=== PATIENT | female | born 1945 | race Asian ===

== ENCOUNTER 2018-01-31 16:35 | Emergency (ER) | payer MEDICARE ==
--- NOTE | 2018-01-31 16:45 | Emergency Department Record ---
History of Present Illness - General Chief Complaint: Knee injury Stated Complaint: L KNEE INJURY Time Seen by Provider: 01/31/18 16:45 Source: Patient Mode of Arrival: Ambulatory Limitations: No limitations - History of Present Illness Initial Comments: The patient is here due to knee pain that has been getting progressively worse for the last 2 months. [place] and was doing a lot of walking. It seems that walking up stairs makes the pain much worse. There was no known injury or direct trauma. The patient [place] the airport [place] the pain much worse. There is no calf or thigh pain or swelling. MD Complaint: Knee injury Onset/Timin -: Month(s) Type of Injury: Unknown Place: Home Severity: Moderate - Related Data Allergies Allergy/AdvReac Type Severity Reaction Status Date / Time levofloxacin [From Levaquin] Allergy RASH Verified 01/31/18 16:40 Review of Systems Constitutional: Denies: Chills, Fever Eyes: Denies: Eye discharge ENT: Denies: Congestion Respiratory: Denies: Cough, Dyspnea Past Medical History - SOCIAL HISTORY Smoking Status: Never smoker - RESPIRATORY Hx Respiratory Disorders: Yes Hx Asthma: Yes Hx COPD: Yes - CARDIOVASCULAR Hx Cardio Disorders: Yes Hx CHF: Yes Hx Hypertension: Yes - NEURO Hx Neuro Disorders: No - GI Hx GI Disorders: Yes Hx Reflux: Yes - Hx Genitourinary Disorders: No - ENDOCRINE Hx Endocrine Disorders: Yes Hx Thyroid Disease: Yes - MUSCULOSKELETAL Hx Musculoskeletal Disorders: Yes Hx Back Injury: Yes - PSYCH Hx Psych Problems: No - HEMATOLOGY/ONCOLOGY Hx Hematology/Oncology Disorders: No Family Medical History Hx Diabetes: Brother/Sister Hx Heart Disease: Mother Hx Resp Disorders: Mother Physical Exam - General General Appearance: Alert, Oriented x3, Cooperative, No acute distress - Head Head exam: Atraumatic, Normocephalic, Normal inspection - Eye Eye exam: Normal appearance, PERRL - Neck Neck exam: Normal inspection, Full ROM. negative: Tenderness - Respiratory Respiratory exam: Normal lung sounds bilaterally. negative: Respiratory distress - Cardiovascular Cardiovascular Exam: Regular rate, Normal rhythm, Normal heart sounds - Extremities Extremities exam: Normal inspection (There is no swelling, erythema, or effusions appreciated.), Normal capillary refill. negative: Full ROM (There is decreased full flexion due to pain. There is no ligamentous laxity.), Tenderness (There is no joint line tenderness or warmth.) - Neurological Neurological exam: Alert. negative: Motor sensory deficit Course - Reevaluation(s) Reevaluation #1: I did discuss the xray results with the patient and . She does have an appointment with Dr. Aguayo for next Sunday. She is to use ice to the L knee and use her home crutches if needed. 01/31/18 17:33 Medical Decision Making - Data Complexity MDM Data: X-Ray Ordered and/or Reviewed - Radiology Data Radiology results: Report reviewed (L knee: Neg for fx or dislocation. Mild to mod arthritis.) Disposition Disposition: Discharge Clinical Impression: Knee pain, chronic Qualifiers: Laterality: left Qualified Code(s): M25.562 - Pain in left knee Disposition: Home, Self-Care Condition: (2) Stable Instructions: Knee Pain (ED) Additional Instructions: The patient is to ice and elevate the L knee when possible and to use Tylenol for pain. She is to use her home crutches or obtain a cane if needed for walking. She is instructed to keep her appointment with Dr. Aguayo for Sunday. Forms: Patient Portal Access Time of Disposition: 17:35 Quality - Quality Measures Quality Measures: N/A - Blood Pressure Screening View Details: Yes Does Patient Have Any of the Following: No Blood Pressure Classification: Pre-Hypertensive BP Reading Systolic Measurement: 134 Diastolic Measurement: 63 Screening for High Blood Pressure: < Pre-Hypertensive BP, F/U Documented > [ G8950] Pre-Hypertensive Follow-up Interventions: Referral to alternative/primary care provider.
[2018-01-31] MEDS: ACETAMINOPHEN 325 MG TAB PO ONE (17:15)
--- NOTE | 2018-02-03 16:35 | RADIOLOGY REPORT ---
DATE: 01/31/2018 at 1659 hours. EXAM: LEFT KNEE, THREE VIEWS. HISTORY: Left knee pain for a few weeks. Pain is worse with climbing stairs and walking. Prior arthroscopy. TECHNIQUE: Three views of the left knee. COMPARISON: None. ENCOUNTER: Initial. FINDINGS: There is normal bone mineralization. No acute fracture, dislocation , or destructive bone lesion is seen. Tricompartmental osteoarthritic changes are identified, most pronounced in the medial and patellofemoral compartments where they are mild to moderate in degree. No joint effusion. No focal soft tissue abnormality. IMPRESSION: 1. NO EVIDENCE OF ACUTE BONE NOR JOINT ABNORMALITY. 2. TRICOMPARTMENTAL OSTEOARTHRITIC CHANGES MOST PRONOUNCED IN THE MEDIAL AND PATELLOFEMORAL COMPARTMENTS. JOB NUMBER: [id number] MTDD
== END 2018-01-31 17:49 | disposition home or self-care (01) ==
LOC: ER 16:35
DX: G89.29 Other chronic pain (principal); M25.562 Pain in left knee; I10 Essential (primary) hypertension; I50.9 Heart failure, unspecified
CPT/HCPCS: 99283

== ENCOUNTER 2018-05-07 07:26 | Day surgery (SDC) | payer MEDICARE ==
[2018-04-29 15:03] LABS: BLOOD UREA NITROGEN 17 mg/dL (8-23); CREATININE 0.7 mg/dL (0.5-0.9); EST GLOMERULAR FILTRATION RATE > 60 mL/min; GLUCOSE,RANDOM 151 mg/dL (74-109)
[2018-04-29 15:37] LABS: BASO % 0.4 % (0-6); EOS % 1.7 % (0-6); GRAN % 57.2 % (47-80); HEMATOCRIT 45.4 % (35.0-47.0); HEMOGLOBIN 15.2 gm/dl (11.6-16.0); LYMPH % 34.6 % (16-45); MEAN CELL VOLUME 86.3 fl (81-97); MEAN CORPUSCULAR HEMOGLOBIN 28.9 pg (27-33); MEAN CORPUSCULAR HGB CONC 33.5 g/dl (32-36); MEAN PLATELET VOLUME 9.8 fl (7.4-10.4); MONO % 6.1 % (0-9); PLATELET COUNT 302 K/uL (130-400); RED BLOOD COUNT 5.26 M/uL (3.80-5.40); RED CELL DISTRIBUTION WIDTH 13.3 % (11.5-14.5); WHITE BLOOD COUNT W/O DIFF 9.6 K/uL (4.2-12.2)
[~2018-05-07 07:26] MED LIST: CELECOXIB 100 MG CAPSULE PO ONE; CLINDAMYCIN 600MG/50ML PREMIX 600 MG/50 ML BAG IVPB ONE; FAMOTIDINE 20MG TABLET PO ONE; MECLIZINE 25 MG TABLET PO ONE; METOCLOPRAMIDE 10 MG TABLET PO ONE
[2018-05-07] MEDS ORDERED: MIDAZOLAM HCL 2MG/2ML VIAL IV ONE (07:27)
[2018-05-07] MEDS ORDERED: DEXAMETHASONE 4 MG/ML 1ML VIAL IVP ONE (07:27)
[2018-05-07] MEDS ORDERED: FENTANYL PF 100MCG/2ML VIAL IV ONE (07:27)
[2018-05-07] MEDS ORDERED: BUPIVACAINE 0.25% W/EPI MPF 30ML VIAL IVP ONE (07:27)
[2018-05-07] MEDS ORDERED: LIDOCAINE 2% MDV (20MG/ML) 20ML VIAL IV ONE (07:27)
[2018-05-07] MEDS ORDERED: BUPIVACAINE LIPOSOME 266MG/20ML VIAL IV ONE (07:27)
[2018-05-07] MEDS ORDERED: PROPOFOL 10 MG/ML VIAL IV ONE (07:27)
[2018-05-07] MEDS ORDERED: ROPIVACAINE HCL (NAROPIN) /PF 5MG/ML 20ML VIAL IV ONE (07:27)
[2018-05-07] MEDS ORDERED: ACETAMINOPHEN 1,000 MG/100 ML BTL IV ONE (07:27)
[2018-05-07] MEDS ORDERED: EPHEDRINE SULFATE 50 MG/ML ML IV ONE (07:27)
[2018-05-07] MEDS ORDERED: HYDROCODONE/APAP 5/325MG TABLET PO PRN (11:07)
[2018-05-07] MEDS ORDERED: OXYCODONE HCL/APAP 5MG/325MG TABLET PO PRN ×2 (11:07)
[2018-05-07] MEDS ORDERED: ZOLPIDEM TARTRATE 5 MG TABLET PO PRN (11:15)
[2018-05-07] MEDS ORDERED: SENNOSIDES/DOCUSATE SODIUM UD CAPSULE PO PRN (11:15)
[2018-05-07] MEDS ORDERED: ONDANSETRON HCL IV 4 MG/2 ML VIAL IVP PRN (11:15)
[2018-05-07] MEDS ORDERED: METOCLOPRAMIDE HCL 10 MG/2 ML VIAL IVP PRN (11:15)
[2018-05-07] MEDS ORDERED: HYDROMORPHONE HCL 2 MG/ML VIAL IV PRN (11:15)
[2018-05-07] MEDS ORDERED: TRAMADOL HCL 50 MG TABLET PO PRN ×2 (11:15)
[2018-05-07] MEDS ORDERED: MAGNESIUM HYDROXIDE 30 ML UDC PO PRN (11:15)
[2018-05-07] MEDS ORDERED: DIPHENHYDRAMINE HCL 25 MG CAPSULE PO PRN (11:15)
[2018-05-07] MEDS ORDERED: AL HYDROX/MAG HYDROX 30ML UD PO PRN (11:15)
[2018-05-07] MEDS ORDERED: RINGERS SOLUTION,LACTATED 1,000 ML IV PRN (11:17)
[2018-05-07] MEDS ORDERED: XOPENEX INH PRN (11:21)
[2018-05-07] MEDS: RINGERS SOLUTION,LACTATED 1,000 ML IV SCH (12:00)
[2018-05-07] MEDS: CANDESARTAN 32 MG PO SCH (12:21)
[2018-05-07] MEDS ORDERED: TRANEXAMIC ACID 1,000 MG in 0.9 % SODIUM CHLORIDE 100ML 100 ML IVPB ONE (13:00)
--- NOTE | 2018-05-07 15:40 | Rehab Evaluation ---
Patient Information - Patient Information Diagnosis: L knee OA Ordered Treatment: PT Evaluate and Treat Status: Initial Evaluation Surgery: Yes (L TKA) Date of Surgery: 05/07/18 Past Medical/Surgical Hx: PAST MEDICAL/SURGICAL HISTORY Past Surgical History cataract knee PMH - Respiratory Hx Respiratory Disorders Yes Hx Asthma Yes Hx Bronchitis Yes Hx Chronic Obstructive Yes Pulmonary Disease (COPD) Hx Dyspnea Yes Hx Pneumonia Yes Hx of SOB Yes PMH - Cardiovascular Hx Cardiovascular Disorders Yes Hx Congestive Heart Failure Yes Hx Hypertension Yes Exercise Tolerance Fair Comment: due to knee pain PMH - Neuro Hx Neurological Disorders No Hx Dizziness Yes: off balance at times Hx Headaches Yes: frequently PMH - GI Hx Gastrointestinal Disorders Yes Hx Gastroesophageal Reflux Yes PMH - Hx Genitourinary Disorders No Hx Age of Menopause 45 Hx Bladder Problem Yes: some incontinence uses a pad leaking PMH - Endocrine Hx Endocrine Disorders Yes Hx Thyroid Disease Yes PMH - Musculoskeletal Hx Musculoskeletal Disorders Yes Hx Arthritis Yes: left knee and fingers Hx Back Injury Yes PMH - Psych Hx Psychiatric Problems No Hx Anxiety Yes PMH - Hematology/Oncology Hx Hematology/Oncology No Disorders Hx Radiation Therapy Yes: for graves disease Premorbid Status: Detail (The patient was independent with all mobility prior to surgery.) Social History: Detail (The patient lives with spouse in a one story house with 4 steps at the enterance and two railings. The patient's bathroom is equipped with a tub/shwoer combination ,no grab bras and a standard height toilet. The patient has a walker and standard cane and shower bench.) Precautions: [place], Fall, Other (WBAT on the L LE) - Time With Patient Total Time Spent With Patient (Min): 30 Treatment Procedures: Detail (Gait training, Initial Evaluation) Subjective Information - Subjective Information Per Patient (The patient had no complaints of pain) Objective Data - Mental Status Patient Orientation: Oriented x3 - Visual Perception Appears within normal limits for therapeutic activities - ROM Not within normal limits (The patient's L knee AROM was limited as to be expected following surgery . All other LE AROM was WNL.) - Strength/Tone Not within normal limits (The patient's L LE strength was not tested but was functional ie: pt was able to complete a SLR. R LE strength was functional.) - Bed Mobility Independent (The patient was independent with supine to and from sit transfer.) - Transfers Independent (The patient was independent with sit to and from stand transfer and toilet transfer.) - Balance Balance Sitting: Good Balance Standing: Good - Sensation Intact - Gait Detail (The patient ambulated with front wheeled walker a distance of 67 feet x1 WBAT on the L LE with supervision for safety.) Therapy Assessment - Therapy Assessment Detail (The patient was independent with bed mobility, transfers and ambulates with supervision for safety. Feel the patient will progress well with mobility.) Problem List - Problem List Physical Therapy Problem List: Detail (1) Decreased L knee AROM and strength as to be expected following surgery. 2) Non ambulatory on stairs) Goals - Goals Physical Therapy Goals: 1) The patient will be independent with TKA HEP. 2) The patient will ambulate on stairs with supervision for safety. Prognosis - Prognosis Good Plan - Plan Physical Therapy Plan: PT 1-2 sessions for gait training on stairs and instruction in HEP.
--- NOTE | 2018-05-07 16:31 | Operative Note ---
DATE OF SURGERY: 05/07/2018 Surgeon: Geovanny Aguayo DO PREOPERATIVE DIAGNOSIS: Primary osteoarthritis of the left knee. POSTOPERATIVE DIAGNOSIS: Primary osteoarthritis of the left knee. OPERATION: Left total knee arthroplasty. DESCRIPTION OF PROCEDURE: This 73-year-old female was taken to the operating room and placed in the supine position on the operating room table after spinal anesthesia had been induced. The left lower extremity was then elevated. It was prepped with Hibiclens and draped in the usual sterile fashion, exsanguinated, and the tourniquet inflated to 300 mmHg. All scrub personnel wore personal isolation suits. An anterior longitudinal midline incision was made followed by a medial parapatellar arthrotomy incision. An intracondylar drill hole was made for the intramedullary alignment roddy, and the distal femoral cutting block was set at a 9 mm cut and 5-degree valgus. The appropriate cut was made. The sizing jig was affixed, and a size 57 was seen to be the appropriate size in the medial-lateral direction but not in the anterior-posterior direction, so we had to move the pin sites 2 mm anteriorly to avoid notching the anterior aspect of the femur. Once this was performed, the 4-in-1 cutting block pinned in 3 degrees of external rotation. The appropriate cuts were made. We then directed our attention to the proximal tibia, and an extramedullary alignment guide was used to cut the proximal tibia. Once the appropriate rotational alignment had been assured, a 3-degree slope cut was made referencing 10 mm cut off the lateral tibial plateau. This was seen to be not quite enough bone to get below the subchondral bone. Therefore, an additional 2 mm was taken. We then directed our attention to removal of the osteophytes and remnants of the menisci. The tibia was then sized to a 67 and the stem punch was used. The soft tissue balance was checked in flexion/extension. Trial components were inserted and an 11 mm bearing was seen to be the appropriate size giving us the best stability throughout normal range of motion. We had cut the patella and restored it to anatomic height with a 34 x 8.6 mm trial. Once this was seen to be satisfactory, all trial components were then removed and the wound again copiously irrigated with pulse lavage, lactated Ringer's solution. Exparel was injected into the posterior, medial, and lateral corners of the joint and at the completion of the procedure, the remainder was injected into the periosteum and joint capsule of the proximal tibia and distal femur. All bony surfaces were dried and excess cement removed after the insertion of each component. Initially the tibial baseplate was cemented followed by the insertion of the tibial bearing, then the femoral component, and finally the patella. Once the cement had completely hardened, the knee was again taken through range of motion and found to be stable. Copious irrigation was again performed. The joint suctioned and the drain placed through a separate stab incision. The arthrotomy incision was closed with a #2 Vicryl and this was augmented with #1 Ethibond. The subcutaneous tissue was closed with 0 Vicryl and the skin was stapled. Sterile dressings were applied with a Polar Care. The patient was taken to the recovery room in satisfactory condition. GROSS PATHOLOGY: This patient demonstrated advanced osteoarthritis of the medial compartment and full-thickness articular cartilage loss noted on both articulating surfaces and the same was true of the patellofemoral joint with the lateral compartment showing grade 2 changes. Final components inserted were a [employer] V[employer] size 57.5 cruciate retaining femur, a size 67 tibial baseplate, an 11 mm anterior stabilized E1 bearing, and a 34 x 8.6 mm patella was used. CC: Moo SOLITARIO
[2018-05-07] MEDS: CEFAZOLIN 2 Gram 2 GM/50 ML BAG IVPB SCH (16:34)
[2018-05-07] MEDS: HYDROCODONE/APAP 5/325MG TABLET PO PRN (16:35)
[2018-05-07] MEDS: ASPIRIN 325 MG TAB ENTERIC-COATED PO SCH (21:42)
[2018-05-07] MEDS ORDERED: CANDESARTAN 32 MG PO SCH (22:00)
[2018-05-08] MEDS: CEFAZOLIN 2 Gram 2 GM/50 ML BAG IVPB SCH ×2 (00:06→08:39)
[2018-05-08] MEDS: HYDROCODONE/APAP 5/325MG TABLET PO PRN ×3 (01:20→07:32)
[2018-05-08] MEDS: RINGERS SOLUTION,LACTATED 1,000 ML IV SCH (05:03)
[2018-05-08] MEDS ORDERED: PATIENT OWN MED: LEVOTHYROXINE 100 MCG PO SCH (07:00)
--- NOTE | 2018-05-08 09:57 | Rehab Evaluation ---
Patient Information - Patient Information Diagnosis: L knee OA Ordered Treatment: OT Evaluate and Treat Status: Initial Evaluation Surgery: Yes (L TKA) Date of Surgery: 05/07/18 Past Medical/Surgical Hx: PAST MEDICAL/SURGICAL HISTORY Past Surgical History cataract knee PMH - Respiratory Hx Respiratory Disorders Yes Hx Asthma Yes Hx Bronchitis Yes Hx Chronic Obstructive Yes Pulmonary Disease (COPD) Hx Dyspnea Yes Hx Pneumonia Yes Hx of SOB Yes PMH - Cardiovascular Hx Cardiovascular Disorders Yes Hx Congestive Heart Failure Yes Hx Hypertension Yes Exercise Tolerance Fair Comment: due to knee pain PMH - Neuro Hx Neurological Disorders No Hx Dizziness Yes: off balance at times Hx Headaches Yes: frequently PMH - GI Hx Gastrointestinal Disorders Yes Hx Gastroesophageal Reflux Yes PMH - Hx Genitourinary Disorders No Hx Age of Menopause 45 Hx Bladder Problem Yes: some incontinence uses a pad leaking PMH - Endocrine Hx Endocrine Disorders Yes Hx Thyroid Disease Yes PMH - Musculoskeletal Hx Musculoskeletal Disorders Yes Hx Arthritis Yes: left knee and fingers Hx Back Injury Yes PMH - Psych Hx Psychiatric Problems No Hx Anxiety Yes PMH - Hematology/Oncology Hx Hematology/Oncology No Disorders Hx Radiation Therapy Yes: for graves disease Premorbid Status: Detail (The patient was independent with all I/ADL's and mobility prior to surgery.) Social History: Detail (The patient lives with spouse in a one story house with 4 steps at the entrance and two railings. There's a small step into the kitchen with no railing. The patient's bathroom is equipped with a tub/shower combination, hand held shower head, no grab bars and a standard height toilet. The patient has a walker and pronged cane. Pt. ordered a grab bar for the bathroom but is not installed yet. Pt. recently got a shower bench but is unsure if it is a tub bench (2 legs in, 2 legs out) or chair (all 4 legs in shower). will be available to assist if needed.) Precautions: [place], Fall, Other (WBAT on the L LE) - Time With Patient Total Time Spent With Patient (Min): 45 Treatment Procedures: Detail (OT Andrea Pineda. Session was concluded with pt. supine in bed, call light within reach and bedside tray within reach.) Subjective Information - Subjective Information Per Patient (Pt. had several questions regarding ADL's, LE positioning, etc. and educ. was provided until questions were met. Educ. was provided she may call rehab dept. if more questions arise.) Objective Data - Pain Pain Present: Yes (2/10 LLE at rest. Pt. reported nursing administered pain meds 30 minutes ago, and is helping.) - Mental Status Patient Orientation: Oriented x3 - Visual Perception Appears within normal limits for therapeutic activities - ROM Within normal limits (BUE) - Strength/Tone Within normal limits (RUE WNL 4+/5 all planes. LUE slightly weaker, but pt. stated is sore from IV. 4- to 4/5. Pt. is R hand dominant.) - Coordination Appears within normal limits for therapeutic activities - Bed Mobility Independent (Educ. provided in adaptive techniques for lifting LLE in/out of bed. Pt. was challenged supine<>sit without using trapeze or bed rail, but was able to do it independently.) - Transfers Independent (modified Ind. sit<>stand from bed to walker, and standard toilet to walker.) - Balance Balance Sitting: Good Balance Standing: Fair - Sensation Intact (BUE fingertips light touch intact) - ADL's/IADL's Detail (Did not assess dressing at this time d/t IV, knee drain, and nursing would need to re-dress the wound soon. Pt. was able to reach RLE to don and doff sock but was unable to reach LLE. Educ. was provided in use of manager [employer] and adaptive dressing techniques. Educ. was provided in using shower chair, tub bench, and t/f techniques. Pt. verbalized understanding.) Therapy Assessment - Therapy Assessment Detail (In-pt. OT services not recommended at this time. However, pt. would benefit from home OT evaluation to assess environmental/equipment needs and education in tub t/f.) Patient Education - Patient Education Teaching Topic: Equipment Use, Exercise/Activity Response: Reinforcement Needed, Verbalize Understanding Teaching Method: Discussion, Demonstration Teaching Recipient: Patient Barriers To Learning: None Problem List - Problem List Physical Therapy Problem List: Detail (1) Decreased L knee AROM and strength as to be expected following surgery. 2) Non ambulatory on stairs) Goals - Goals Physical Therapy Goals: 1) The patient will be independent with TKA HEP. 2) The patient will ambulate on stairs with supervision for safety. Prognosis - Prognosis Good Plan - Plan Physical Therapy Plan: PT 1-2 sessions for gait training on stairs and instruction in HEP. Occupational Therapy Plan: D/C from in-pt. OT.
[2018-05-08] MEDS ORDERED: PATIENT OWN MED: CHLORTHALIDONE 25 MG PO SCH (10:00)
[2018-05-08] MEDS ORDERED: CELECOXIB 100 MG CAPSULE PO SCH (10:00)
[2018-05-08] MEDS ORDERED: SPIRIVA HANDIHALER INH SCH (10:00)
[2018-05-08] MEDS ORDERED: BYSTOLIC 20 MG PO SCH (10:00)
[2018-05-08] MEDS: ASPIRIN 325 MG TAB ENTERIC-COATED PO SCH (11:00)
[2018-05-08] MEDS: CANDESARTAN 32 MG PO SCH (11:00)
[2018-05-08] MEDS ORDERED: ACETAMINOPHEN 325 MG TAB PO PRN (11:15)
--- NOTE | 2018-05-08 12:51 | Physical Therapy Tx Note ---
Physical Therapy Tx Note - Treatment Note Tolerated: Good Total Time Spent With Patient: 25 Physical Therapy Tx Note: Detail (The patient ambulated with standard walker a distance of 134 feet x 1 with WBAT on the L LE independently. The patient ambulated on 3 steps with use of one railing and folding walker using proper technique with patient's observing. The patient completed TKA HEP including: heel slides, ankle pumps, gluteal sets, hamstring sets, quad sets and SLR. The patient has met all PT goals and is discharged from inpt. PT.) Physical Therapy Problem List: Detail (1) Decreased L knee AROM and strength as to be expected following surgery. 2) Non ambulatory on stairs) Physical Therapy Goals: GOALS MET: 1) The patient will be independent with TKA HEP. 2) The patient will ambulate on stairs with supervision for safety. Physical Therapy Plan: The patient is discharged from inpatient PT .
--- NOTE | 2018-05-09 10:40 | Discharge Summary ---
DATE OF ADMISSION: 05/07/2018 DATE OF DISCHARGE: 05/08/2018 ADMITTING DIAGNOSIS: Osteoarthritis of the left knee. DISCHARGE DIAGNOSIS: Osteoarthritis of the left knee. OPERATIVE PROCEDURE: Elective left total knee arthroplasty. DESCRIPTION: This 73-year-old female tolerated the operative procedure well. The drain was removed the first postoperative day. She cleared physical therapy and was ready for discharge. The pain was controlled with her own narcotics. She has outpatient physical therapy scheduled. She was instructed to take aspirin 325 mg daily for 2 weeks and she was given a prescription for [place] 5/325 mg, #40, 1 every 4 hours as necessary for pain. She will wear her MORENA hose during the day and remove them at night and follow up in 2 weeks. Routine wound care instructions were given. Should she have any problems prior to being seen, she was instructed to call my office. FRANSISCO
[2018-05-09] MEDS ORDERED: CRESTOR 10 MG PO SCH (22:00)
== END 2018-05-08 13:54 | disposition home or self-care (01) ==
LOC: SUR 07:26 → MEDSURG 11:08 → SUR 05-08 13:54
PROVIDERS: ATTEND Orthopaedic Surgery
DX: M17.12 Unilateral primary osteoarthritis, left knee (principal); I10 Essential (primary) hypertension; E78.00 Pure hypercholesterolemia, unspecified; E03.9 Hypothyroidism, unspecified; J44.9 Chronic obstructive pulmonary disease, unspecified; I50.9 Heart failure, unspecified; J45.909 Unspecified asthma, uncomplicated
CPT/HCPCS: 76942; 80048; 85025; 97110; 97530; J2405; J7120

== ENCOUNTER 2018-08-08 13:33 | Day surgery (SDC) | payer MEDICARE ==
[2018-08-08] MEDS ORDERED: PROPOFOL 10 MG/ML VIAL IV ONE (13:34)
[2018-08-08] MEDS ORDERED: LIDOCAINE 2% MDV (20MG/ML) 20ML VIAL IV ONE (13:34)
--- NOTE | 2018-08-09 10:50 | Operative Note ---
DATE OF SURGERY: 08/08/2018 OPERATION: ESOPHAGOGASTRODUODENOSCOPY with biopsy. PREOPERATIVE DIAGNOSIS: Epigastric pain. POSTOPERATIVE DIAGNOSIS: Mild antral erythema, otherwise normal exam. PROCEDURE: After informed consent was obtained from the patient, she was placed in the left lateral decubitus position in the endoscopy suite, sedated and monitored by the department of anesthesia. A well-lubricated [id number] gastroscope was placed in the posterior oropharynx under direct visualization and passed to the proximal esophagus. The endoscope was advanced through the proximal, mid, and distal esophagus. The GE junction and esophagus were unremarkable. The gastric body demonstrated normal distensibility, normal rugal folds. There were mild erythematous changes in the antrum but no jorge ulcers or mass lesions were seen. The pylorus, duodenal bulb, and sweep were unremarkable. J-turn views of the proximal stomach were unremarkable. The endoscope was straightened. Antral biopsies were obtained. The endoscope removed from the patient with no new findings noted. RECOMMENDATIONS: At this point, no obvious explanation for her discomfort can be seen. As a result, I will have her undergo an abdominal ultrasound. As always, thank you for allowing me to participate in the healthcare of your patients. CC: Moo SOLITAR[employer]
== END 2018-08-08 14:51 | disposition home or self-care (01) ==
LOC: HOP 13:33
PROVIDERS: ATTEND Internal Medicine Gastroenterology
DX: R10.13 Epigastric pain (principal); L53.8 Other specified erythematous conditions; I10 Essential (primary) hypertension; E78.00 Pure hypercholesterolemia, unspecified; J44.9 Chronic obstructive pulmonary disease, unspecified

== ENCOUNTER 2018-11-09 11:04 | Emergency (ER) | payer MEDICARE ==
--- NOTE | 2018-11-09 11:37 | Emergency Department Record ---
History of Present Illness - General Chief complaint: ENT Stated complaint: RT EAR PLUGGED Time Seen by Provider: 11/09/18 11:32 Source: Patient Mode of Arrival: Ambulatory Limitations: No limitations - History of Present Illness Initial comments: 73 yo female presents with gradual worsening hearing loss and fullness with wax in the right ear. No trauma. No drainage. No fever. No other symptoms. She has a history of cerumen impaction in the past. MD complaint: Ear pain, Other -: Week(s) (1) Location: R ear Severity: Moderate Quality: Other Consistency: Constant Improves with: None Worsens with: Other (wax) Context- Ear: Other - Related Data Allergies Allergy/AdvReac Type Severity Reaction Status Date / Time levofloxacin [From Levaquin] Allergy RASH Verified 11/09/18 11:31 Travel Screening - Travel/Exposure Within Last 30 Days Have you traveled within the last 30 days?: No - Travel/Exposure Within Last Year Have you traveled outside the [place] in the last year?: No - Additonal Travel Details Have you been exposed to anyone with a communicable illness?: No - Travel Symptoms Symptom Screening: None Review of Systems Constitutional: Denies: Chills, Fever, Malaise, Weakness Eyes: Denies: Eye discharge, Eye pain, Photophobia, Vision change ENT: Reports: As per HPI, Ear pain, Hearing loss. Denies: Congestion Respiratory: Denies: Cough Cardiovascular: Denies: Chest pain, Palpitations, Syncope Endocrine: Denies: Fatigue, Polydipsia, Polyuria Gastrointestinal: Denies: Abdominal pain, Diarrhea, Nausea, Vomiting Genitourinary: Denies: Dysuria, Incontinence Musculoskeletal: Denies: Arthralgia, Myalgia Skin: Denies: Bruising, Change in color, Rash Neurological: Denies: Headache, Numbness, Vertigo, Weakness Psychiatric: Denies: Anxiety Hematological/Lymphatic: Denies: Easy bleeding, Easy bruising Past Medical History - SOCIAL HISTORY Smoking Status: Never smoker - RESPIRATORY Hx Respiratory Disorders: Yes Hx Asthma: Yes Hx Bronchitis: Yes Hx COPD: Yes Hx Dyspnea: Yes Hx Pneumonia: Yes - CARDIOVASCULAR Hx Cardio Disorders: Yes Comment:: due to knee pain - NEURO Hx Neuro Disorders: No Hx Dizziness: Yes (off balance at times) - GI Hx GI Disorders: Yes Hx Reflux: Yes - Hx Genitourinary Disorders: No Hx Bladder Problem: Yes (some incontinence uses a pad leaking) - ENDOCRINE Hx Endocrine Disorders: Yes Hx Thyroid Disease: Yes - MUSCULOSKELETAL Hx Musculoskeletal Disorders: Yes Hx Arthritis: Yes (left knee and fingers) - PSYCH Hx Psych Problems: No Hx Anxiety: Yes - HEMATOLOGY/ONCOLOGY Hx Hematology/Oncology Disorders: No Hx Radiation Therapy: Yes (for graves disease) Family Medical History Any Significant Family History?: No Hx Diabetes: Brother/Sister Hx Heart Disease: Mother Hx Resp Disorders: Mother Physical Exam - General General Appearance: Alert, Oriented x3, Cooperative, No acute distress Limitations: No limitations - Head Head exam: Atraumatic, Normal inspection - Eye Eye exam: Normal appearance, PERRL. negative: Conjunctival injection, Scleral icterus - ENT ENT exam: Normal exam, Mucous membranes moist, Normal orophraynx. negative: TM's normal bilaterally (Right cerumen impaction, partial left) Ear exam: Normal external inspection Nasal Exam: Normal inspection Mouth exam: Normal external inspection Teeth exam: Normal inspection Throat exam: Normal inspection - Neck Neck exam: Normal inspection - Neurological Neurological exam: Alert, Normal gait, Oriented X3. negative: Altered - Psychiatric Psychiatric exam: Normal affect, Normal mood - Skin Skin exam: Dry, Intact, Normal color, Warm Course Vital Signs 11/09/18 11:24 Temperature 98.1 F Pulse Rate 69 Respiratory 18 Rate Blood Pressure 126/66 Pulse Ox 97 - Reevaluation(s) Reevaluation #1: Examination consistent with cerumen impaction 11/09/18 11:37 Disposition Disposition: Discharge Clinical Impression: Cerumen impaction Disposition: Home, Self-Care Condition: (1) Good Instructions: Cerumen Impaction (ED) Additional Instructions: Call your doctor for the next available follow up appointment Review this ER visit and the tests performed with your family doctor Return to the ER for a recheck if worse, any new concerns or questions Go to your pharmacy and ask for Debrox or an ear wax removal kit Use twice daily Forms: Patient Portal Access Time of Disposition: 11:57 Quality - Quality Measures Quality Measures: N/A - Blood Pressure Screening Does Patient Have Any of the Following: No Blood Pressure Classification: Pre-Hypertensive BP Reading Systolic Measurement: 126 Diastolic Measurement: 66 Screening for High Blood Pressure: < Pre-Hypertensive BP, F/U Documented > [[id number]] Pre-Hypertensive Follow-up Interventions: Referral to alternative/primary care provider.
== END 2018-11-09 12:16 | disposition home or self-care (01) ==
LOC: ER 11:04
DX: H61.23 Impacted cerumen, bilateral (principal)
CPT/HCPCS: 99282